=== PATIENT | male | born 1955 | race Caucasian/White ===

== ENCOUNTER → 2024-01-09 13:36 | Outpatient (REF) | payer MEDICARE, OTHER, SELFPAY | LOC: RCS 13:36 | PROVIDERS: ATTENDING PHYSICIAN Internal Medicine Cardiovascular Disease; FAMILY PHYSICIAN Family Medicine | DX: I25.10 Atherosclerotic heart disease of native coronary artery without angina pectoris (principal); I10 Essential (primary) hypertension; R94.39 Abnormal result of other cardiovascular function study | CPT/HCPCS: 93017; 93350 ==